=== PATIENT | male | born 1975 | race Caucasian/White ===

== ENCOUNTER 2022-04-29 08:31 | Outpatient (CLI) | payer BC, SELFPAY ==
[2022-04-29 13:42] LABS: Albumin* 4.3 g/dL (3.3-5.0); Chloride* 105 mmol/L (96-114); Potassium* 4.1 mmol/L (3.6-5.1); Sodium* 140 mmol/L (135-149)
[2022-04-29 13:44] LABS: Cholesterol* 188 mg/dL (90-199)
[2022-04-29 13:45] LABS: Alanine Aminotransferase* 37 U/L (4-50); Alkaline Phosphatase* 72 U/L (40-150); Bilirubin Total* 0.9 mg/dL (0.1-1.5); Blood Urea Nitrogen* 24 mg/dL (5-24); Carbon Dioxide* 28 mmol/L (20-32); Creatinine* 0.7 mg/dL (0.5-1.5); Estimated Glomerular Filt Rate 114 ml/min; Glucose* 126 mg/dL (60-115); Total Protein* 7.2 g/dL (6.0-8.3); Triglycerides* 146 mg/dL (40-149)
[2022-04-29 13:46] LABS: Calcium* 9.2 mg/dL (8.4-10.6); HDL Cholesterol* 37 mg/dL (>=40); LDL Cholesterol Calculated 122 mg/dL (<100)
[2022-04-29 14:15] LABS: PSA Screen* 0.31 ng/mL (0.10-4.00)
[2022-04-29 16:02] LABS: Aspartate Amino Transferase* 32 U/L (12-35)
== END 2022-04-29 08:32 | disposition home or self-care (01) ==
PROVIDERS: Visit Provider Family Medicine
DX: Z00.00 Encounter for general adult medical examination without abnormal findings (principal); Z01.818 Encounter for other preprocedural examination; I10 Essential (primary) hypertension; R73.9 Hyperglycemia, unspecified; E66.9 Obesity, unspecified; Z12.5 Encounter for screening for malignant neoplasm of prostate
CPT/HCPCS: 80053; 80061; 84153

== ENCOUNTER 2023-04-29 08:35 | Outpatient (CLI) | payer BC, SELFPAY | END 2023-04-29 08:36 | disposition home or self-care (01) | PROVIDERS: PCP Family Medicine; Referring Provider Family Medicine; Visit Provider Family Medicine | DX: I10 Essential (primary) hypertension (principal); Z13.220 Encounter for screening for lipoid disorders; Z80.42 Family history of malignant neoplasm of prostate | CPT/HCPCS: 80048; 80061; G0103 ==

== ENCOUNTER 2023-05-01 13:37 | Outpatient (CLI) | payer BC, SELFPAY | END 2023-05-01 13:38 | disposition home or self-care (01) | PROVIDERS: PCP Family Medicine; Visit Provider Family Medicine | DX: Z00.00 Encounter for general adult medical examination without abnormal findings (principal); E11.9 Type 2 diabetes mellitus without complications; I10 Essential (primary) hypertension; E66.01 Morbid (severe) obesity due to excess calories | CPT/HCPCS: 82043; 82570 ==

== ENCOUNTER 2023-10-14 08:06 | Outpatient (CLI) | payer BC, SELFPAY | END 2023-10-14 08:07 | disposition home or self-care (01) | LOC: LKVREF 08:08 | PROVIDERS: PCP Family Medicine; Visit Provider Family Medicine | DX: E78.00 Pure hypercholesterolemia, unspecified (principal); I10 Essential (primary) hypertension; E11.9 Type 2 diabetes mellitus without complications | CPT/HCPCS: 80053; 80061 ==

== ENCOUNTER 2024-05-04 08:51 | Outpatient (CLI) | payer BC, SELFPAY | END 2024-05-04 08:52 | disposition home or self-care (01) | PROVIDERS: PCP Family Medicine; Visit Provider Family Medicine | DX: I10 Essential (primary) hypertension (principal); E11.9 Type 2 diabetes mellitus without complications; Z79.85 Long-term (current) use of injectable non-insulin antidiabetic drugs; Z13.29 Encounter for screening for other suspected endocrine disorder; Z12.5 Encounter for screening for malignant neoplasm of prostate | CPT/HCPCS: 80053; 80061; 82043; 82570; 84443; G0103 ==